=== PATIENT | female | born 1950 | race Caucasian/White ===

== ENCOUNTER 2021-08-30 13:32 | Outpatient (REF) | payer MEDICARE, OTHER, SELFPAY ==
[2021-08-30 13:38] VITALS: BP 157/87; PULSE 77; RESP 16; TEMP 36.6; O2SAT 98
[2021-08-30 13:39] VITALS: BMI 27.4
== END 2021-08-30 13:33 | disposition home or self-care (01) ==
LOC: HO.MS 13:32
PROVIDERS: PCP Internal Medicine; Visit Provider Ophthalmology
PROC: (CPT 66821; principal; 2021-08-30 14:40)
DX: H26.491 Other secondary cataract, right eye (principal); Z96.1 Presence of intraocular lens; E07.9 Disorder of thyroid, unspecified; C54.1 Malignant neoplasm of endometrium; E78.00 Pure hypercholesterolemia, unspecified; Z79.899 Other long term (current) drug therapy; Z86.16 Personal history of COVID-19
CPT/HCPCS: 66821

== ENCOUNTER 2021-09-27 10:10 | Outpatient (REF) | payer MEDICARE, OTHER, SELFPAY ==
[2021-09-27 10:22] VITALS: BP 148/72; PULSE 74; RESP 16; TEMP 36.8; O2SAT 98
[2021-09-27 10:23] VITALS: BMI 27.4
== END 2021-09-27 10:11 | disposition home or self-care (01) ==
LOC: HO.MS 10:10
PROVIDERS: PCP Internal Medicine; Visit Provider Ophthalmology
PROC: (CPT 66821; principal; 2021-09-27 11:40)
DX: H26.492 Other secondary cataract, left eye (principal)
CPT/HCPCS: 66821